=== PATIENT | male | born 1970 | race Caucasian/White ===

== ENCOUNTER 2017-07-24 08:30 | Day surgery (SDC) | payer OTHER ==
--- NOTE | 2017-07-24 07:32 | PCM.PREANE ---
Preanesthetic Assessment - Anesthesia/Transfusion/Family Hx Anesthesia History: Prior Anesthesia Without Reaction Family History of Anesthesia Reaction: No Transfusion History: No Prior Transfusion(s) Intubation History: Unknown - Review of Systems General: No Symptoms Pulmonary: No Symptoms (Exercise induced asthma (last used albuterol inhaler) Cardiovascular: No Symptoms Gastrointestinal: No Symptoms (GERD) Neurological: No Symptoms (History of arthritis), Tingling (Big toe left foot) Other: Reports: None, Sinus Problem (Allergic rhinits) - Physical Assessment NPO Status Date: 07/23/17 NPO Status Time: 22:45 Pulse: 81 O2 Sat by Pulse Oximetry: 96 Respiratory Rate: 16 Blood Pressure: 126/90 Temperature: 36.4 C Height: 1.88 m Weight: 106 kg ASA Class: 2 Mental Status: Alert & Oriented x3 Airway Class: Mallampati = 2 Dentition: Reports: Normal Dentition, Caries Thyro-Mental Finger Breadths: 3 Mouth Opening Finger Breadths: 3 ROM/Head Extension: Full Lungs: Clear to Auscultation, Normal Respiratory Effort Cardiovascular: Regular Rate, Regular Rhythm, No Murmurs - Lab Values: Laboratory Last Values MRSA (PCR) Negative 07/05/17 09:45 All lab values reviewed and noted and within acceptable ranges to proceed with scheduled procedure. Platelets= 320,000. - Imaging/EKG Impressions: Sinus rhythm rate= 87. - Allergies Allergies/Adverse Reactions: Allergies Allergy/AdvReac Type Severity Reaction Status Date / Time No Known Allergies Allergy Verified 07/21/17 10:23 - Anesthesia Plan Pre-Op Medication Ordered: None - Acknowledgements Anesthesia Type Planned: Spinal Pt an Appropriate Candidate for the Planned Anesthesia: Yes Alternatives and Risks of Anesthesia Discussed w Pt/Guardian: Yes Pt/Guardian Understands and Agrees with Anesthesia Plan: Yes PreAnesthesia Questionnaire HEENT History: Reports: Allergic Rhinitis Respiratory History: Reports: Asthma Musculoskeletal History: Reports: Arthritis, Osteoarthritis - Past Surgical History Musculoskeletal Surgical History: Reports: Arthroscopic Knee, Other (See Below) Other Musculoskeletal Surgeries/Procedures:: bilateral heel surgery, L ACL reconstruction, bilateral knee scopes Dermatological Surgical History: Reports: Other (See Below) - SUBSTANCE USE Smoking Status *Q: Never Smoker Recreational Drug Use History: No - HOME MEDS Home Medications: Home Meds Acetaminophen [Tylenol Extra Strength] 1,000 mg PO ASDIRECTED PRN 07/21/17 [ History] Albuterol [IJD: Albuterol HFA] 1 puff INH ASDIRECTED PRN 07/21/17 [History] Cholecalciferol (Vitamin D3) [Vitamin D] 1 tab PO DAILY 07/21/17 [History] - CURRENT (IN HOUSE) MEDS Current Meds: Current Medications Aspirin (Ecotrin) 325 mg PO BID [facility] Bisacodyl (Dulcolax) 5 mg PO DAILY PRN PRN Reason: Constipation Morphine Sulfate 8 mg/Epinephrine HCl 0.3 mg/Cefuroxime Sodium 750 mg/Ketorolac Tromethamine 30 mg/Sodium Chloride 27.9 ml 0 mg .XX ONETIME ONE Stop: 07/24/17 06:51 Cyclobenzaprine HCl (Flexeril) 10 mg PO TID PRN PRN Reason: Spasms Diphenhydramine HCl (Benadryl) 25 mg IVPUSH Q4H PRN PRN Reason: Nausea Docusate Sodium (Colace) 100 mg PO BID MANNY Famotidine (Pepcid) 20 mg PO Q12H [facility] Lactated Ringer's (Ringers, Lactated) 1,000 mls @ 125 mls/hr IV ASDIRECTED MANNY Stop: 07/24/17 18:00 Cefazolin Sodium/Dextrose 2 gm (/ Premix) 50 mls @ 100 mls/hr IV Q8H [facility] Stop: 07/24/17 23:29 Ketorolac Tromethamine (Toradol) 15 mg IVPUSH Q6H PRN PRN Reason: Pain Lidocaine/Sodium Bicarbonate (Buffered Lidocaine 1% In Ns 8.4%) 0.25 ml IV ONETIME PRN PRN Reason: Prior to IV Start Stop: 07/24/17 18:00 Magnesium Hydroxide (Milk Of Magnesia) 30 ml PO BID PRN PRN Reason: Constipation Morphine Sulfate (Morphine) 2 mg IVPUSH Q2H PRN PRN Reason: Breakthrough Pain Naloxone HCl (Narcan) 0.1 mg IVPUSH Q5M PRN PRN Reason: Oversedation Oxycodone/Acetaminophen (Percocet 325-5 Mg) 1 - 2 tab PO Q4H PRN PRN Reason: Pain Senna (Senna) 8.6 mg PO BID PRN PRN Reason: Constipation Sodium Chloride (Saline Flush) 10 ml FLUSH ASDIRECTED PRN PRN Reason: Keep Vein Open Stop: 07/24/17 18:00
[~2017-07-24 08:30] MED LIST: Bisacodyl 5 MG Tab PO PRN; Ketamine 500 mg/10 ML MDV ONE; Ketorolac 30 MG/ML SDV ONE; Lactated Ringers 1,000 ML IV SCH; Lactated Ringers 1,000 ML ONE; Lidocaine 1%/Sod Bicarbonate in NS 8.4% 1 ML Syringe IV PRN; Magnesium Hydroxide 400 MG/5 ML Susp 30 ML Cup PO PRN; Midazolam 1 MG/ML 2 ML SDV ONE; Morphine 4 MG/ML Syringe IVPUSH PRN; Morphine PF 1 MG/ML Amp ONE; Naloxone 0.4 MG/ML SDV IVPUSH PRN; Ondansetron 4 MG/2 ML SDV ONE; Phenylephrine/Normal Saline 100 MCG/ML 10 ML Syringe ONE; Propofol 200 MG/20 ML SDV ONE; Sennosides 8.6 MG Tab PO PRN; Sodium Chloride 0.9% 10 ML Syringe FLUSH PRN; diphenhydrAMINE 50 MG/ML SDV IVPUSH PRN; fentaNYL 100 MCG/2 ML SDV ONE
[2017-07-24] MEDS ORDERED: ceFAZolin 1 GM Vial ONE (08:50)
[2017-07-24] MEDS ORDERED: fentaNYL 100 MCG/2 ML SDV IVPUSH PRN (10:14)
[2017-07-24] MEDS ORDERED: ePHEDrine 50 MG/ML SDV IVPUSH PRN (10:14)
[2017-07-24] MEDS ORDERED: Albuterol 0.083% 2.5 MG/3 ML Neb Soln NEB PRN (10:14)
[2017-07-24] MEDS ORDERED: Midazolam 1 MG/ML 2 ML SDV IVPUSH PRN (10:14)
[2017-07-24] MEDS ORDERED: Ondansetron 4 MG/2 ML SDV IVPUSH PRN (10:14)
[2017-07-24] MEDS ORDERED: diphenhydrAMINE 50 MG/ML SDV IVPUSH PRN (10:14)
[2017-07-24] MEDS ORDERED: HYDROmorphone 0.5 MG/0.5 ML Syringe IVPUSH PRN (10:14)
[2017-07-24] MEDS ORDERED: Phenylephrine 1 MG in Sodium Chloride 0.9% 10 ML IV SCH (10:15)
[2017-07-24] MEDS ORDERED: Lactated Ringers 1,000 ML ONE (10:18)
[2017-07-24] MEDS: Bupivacaine 0.25% 10 ML SDV ONE ×2 (10:40→11:25)
[2017-07-24] MEDS: Iodine/Sodium Iodide 2% Tincture 30 ML Bottle ONE ×2 (10:40→11:20)
[2017-07-24] MEDS: ceFAZolin 1 GM Vial ONE ×2 (10:40→11:23)
[2017-07-24] MEDS: Morphine 8 MG, EPINEPHrine 0.3 MG, Cefuroxime 750 MG, Ketorolac 30 MG, Sodium Chloride ... ONE ×10 (10:41→11:28)
[2017-07-24] MEDS: Vancomycin 1 GM SDV ONE ×2 (10:42→11:30)
[2017-07-24] MEDS ORDERED: Propofol 200 MG/20 ML SDV ONE (11:00)
[2017-07-24] MEDS ORDERED: ePHEDrine/Normal Saline 25 MG/5 ML Syringe ONE (11:38)
[2017-07-24] MEDS ORDERED: Midazolam 1 MG/ML 2 ML SDV ONE (11:50)
[2017-07-24] MEDS ORDERED: Ropivacaine 0.5% 5 MG/ML 30 ML SDV ONE (12:29)
--- NOTE | 2017-07-24 12:29 | PCM.POSTAN ---
POST ANESTHESIA ASSESSMENT - MENTAL STATUS Mental Status: Alert - VITAL SIGNS Pulse Rate: 79 SaO2: 96 Resp Rate: 14 Blood Pressure: 129/88 Temperature: 36.2 C - RESPIRATORY Respiratory Status: Respiratory Rate WNL, Airway Patent, O2 Saturation Stable, Supplemental Oxygen - CARDIOVASCULAR CV Status: Pulse Rate WNL, Blood Pressure Stable - GASTROINTESTINAL GI Status: No Symptoms - POST OP HYDRATION Hydration Status: Adequate & Stable
[2017-07-24] MEDS ORDERED: Albuterol 6.7 GM Inhaler *** PATIENT'S OWN INH PRN (12:45)
--- NOTE | 2017-07-24 13:16 | PCM.SN ---
- Free Text/Narrative Note: Left selective femoral nerve block at the adductor canal for post-procedure pain control Start: 1245 Time out: 1247 End: 1253 Chart reviewed. Consent signed. Questions answered. Appropriate monitors applied (PACU). Time out performed. Left mid-shaft femur evaluated with ultrasound. Scanning medially femur, I was able to identify the femoral artery in the adductor canal. The saphenous nerve was lateral to the artery. The skin was prepped lateral to the ultrasound probe with chlorahexadine. Skin local not utilized due to the effectiveness of the existing spinal blockade. The 21ga 4 insulated block needle was inserted under direct ultrasound guidance into the adductor canal. 20mL of 0.5% ropivacaine with 1:200,000 epinephrine was injected cirmcumferentially about the nerve with intermittent negative aspiration. Patient tolerated the procedure well. See pictures on progress note and vital signs on nurses notes. Block completed post-operatively in PACU. Vinh Jerome CRNA
--- NOTE | 2017-07-24 13:44 | CR ---
Left knee: AP and lateral views left knee were obtained. Comparison: No previous study. Knee prosthesis is seen. Soft tissue air is noted. Underlying bony structures are intact. Impression: 1. Satisfactory radiographic appearance of recently placed left knee prosthesis. Diagnostic code #2
[2017-07-24] MEDS ORDERED: Scopolamine 1 MG Transdermal Patch TOP ONE (15:51)
--- NOTE | 2017-07-24 16:56 | PCM.CONS ---
H&P History of Present Illness - General Date of Service: 07/24/17 Admit Problem/Dx: Admission Diagnosis/Problem Admission Diagnosis/Problem Osteoarthritis of knee Source of Information: Patient, Old Records, Provider, RN, RN Notes Reviewed, Other (Surgical Report ) - History of Present Illness Initial Comments - Free Text/Narative: Cheikh Pablo is a 47 yo male patient of Dr. Clemente who is post-operative day 0 of left TKA and hardware removal. Hospital medicine was consulted for post- operative medical care. At this time he is lying in bed. Pain is controlled. He denies any chest pain, shortness of breath, or palpitations. He has had some post-operative nausea and vomiting. Zofran and a scopolamine patch are ordered. He carries a history of: Asthma, also arthritis, arthritis, ACL reconstruction. He was never a smoker. He is a full code. His primary care provider is Julian Gupta PA-C here at [facility]. Left Knee Pain Score (Numeric/FACES): 1 - Related Data Allergies/Adverse Reactions: Allergies Allergy/AdvReac Type Severity Reaction Status Date / Time No Known Allergies Allergy Verified 07/24/17 14:53 Home Medications: Home Meds Acetaminophen [Tylenol Extra Strength] 1,000 mg PO ASDIRECTED PRN 07/21/17 [ History] Albuterol [IJD: Albuterol HFA] 1 puff INH ASDIRECTED PRN 07/21/17 [History] Cholecalciferol (Vitamin D3) [Vitamin D] 1 tab PO DAILY 07/21/17 [History] Past Medical History HEENT History: Reports: Allergic Rhinitis Respiratory History: Reports: Asthma Musculoskeletal History: Reports: Arthritis, Osteoarthritis - Past Surgical History Musculoskeletal Surgical History: Reports: Arthroscopic Knee, Other (See Below) Other Musculoskeletal Surgeries/Procedures:: bilateral heel surgery, L ACL reconstruction, bilateral knee scopes Dermatological Surgical History: Reports: Other (See Below) Social & Family History - Tobacco Use Smoking Status *Q: Never Smoker - Recreational Drug Use Recreational Drug Use: No Drug Use in Last 12 Months: No H&P Review of Systems - Review of Systems: Review Of Systems: See Below General: Reports: No Symptoms. Denies: Fever, Chills, Malaise, Weakness, Fatigue HEENT: Reports: No Symptoms. Denies: Ear Pain, Eye Pain, Headaches, Hearing Changes, Vertigo, Visual Changes Pulmonary: Reports: No Symptoms. Denies: Shortness of Breath, Wheezing, Pleuritic Chest Pain, Cough, Sputum Cardiovascular: Reports: No Symptoms. Denies: Chest Pain, Palpitations, Dyspnea on Exertion, Edema, Lightheadedness Gastrointestinal: Reports: Nausea, Vomiting. Denies: Abdominal Pain, Constipation, Diarrhea, Hematemesis, Hematochezia Genitourinary: Reports: No Symptoms, Other ([place] in place ). Denies: Dysuria, Frequency, Burning, Pain, Urgency Musculoskeletal: Reports: Joint Pain (left knee ) Skin: Reports: No Symptoms Psychiatric: Reports: No Symptoms Neurological: Reports: No Symptoms Hematologic/Lymphatic: Reports: No Symptoms Immunologic: Reports: No Symptoms Exam - Exam Exam: See Below - Vital Signs Vital Signs: Last Vital Signs Temp 96.8 F 07/24/17 13:15 Pulse 69 07/24/17 13:15 Resp 11 L 07/24/17 13:15 BP 128/82 07/24/17 13:15 Pulse Ox 95 07/24/17 14:48 Weight: 233 lb 11.04 oz - Exam Quality Assessment: Urinary Catheter, DVT Prophylaxis General: Alert, Oriented, Cooperative. No: Mild Distress HEENT: PERRLA, Hearing Intact, Mucosa Moist & [place], Nares Patent, Normal Nasal Septum, Posterior Pharynx Clear, Conjunctiva Clear, EOMI, EACs Clear, TMs Clear Neck: Supple, Trachea Midline Lungs: Clear to Auscultation, Normal Respiratory Effort Cardiovascular: Regular Rate, Regular Rhythm GI/Abdominal Exam: Normal Bowel Sounds, Soft, Non-Tender, No Organomegaly, No Distention, No Abnormal Bruit, No Mass, Pelvis Stable (Male) Exam: Deferred Rectal (Males) Exam: Deferred Extremities: No Pedal Edema, Normal Capillary Refill, Other (Hood bandage on left knee. Bandage is dry and intact. Cooling pack in place.) Peripheral Pulses: 2+: Radial (L), Radial (R), Posterior Tibial (L), Posterior Tibial (R), Dorsalis Pedis (L), Dorsalis Pedis (R) Skin: Warm, Dry, Intact Neurological: Cranial Nerves Intact (Grossly) Neuro Extensive - Mental Status: Alert, Oriented x3, Normal Mood/Affect, Normal Cognition, Memory Intact Neuro Extensive - Motor, Sensory, Reflexes: CN II-XII Intact (Grossly). No: Normal Gait Psychiatric: Alert, Normal Affect, Normal Mood Consult PN Assessment/Plan POD#: 0 Procedures: Procedures ASSAY OF PREALBUMIN (07/12/17) ASSAY OF SERUM ALBUMIN (07/12/17) COMPLETE CBC W/AUTO DIFF WBC (07/12/17) METABOLIC PANEL TOTAL CA (07/12/17) PROTHROMBIN TIME (07/12/17) ROUTINE VENIPUNCTURE (07/12/17) THROMBOPLASTIN TIME PARTIAL (07/12/17) X-RAY EXAM CHEST 2 VIEWS (07/20/17) (1) S/P total knee arthroplasty SNOMED Code(s): 8809853588610, 2012073519415 Code(s): Z96.659 - PRESENCE OF UNSPECIFIED ARTIFICIAL KNEE JOINT Priority: High Current Visit: Yes Qualifiers: Laterality: left Qualified Code(s): Z96.652 - Presence of left artificial knee joint (2) S/P hardware removal SNOMED Code(s): 827825418 Code(s): Z98.890 - OTHER SPECIFIED POSTPROCEDURAL STATES Priority: High Current Visit: Yes (3) Osteoarthritis SNOMED Code(s): 615382579 Code(s): M19.90 - UNSPECIFIED OSTEOARTHRITIS, UNSPECIFIED SITE Priority: High Current Visit: Yes Qualifiers: Osteoarthritis location: knee Osteoarthritis type: primary Laterality: bilateral Qualified Code(s): M17.0 - Bilateral primary osteoarthritis of knee (4) Asthma SNOMED Code(s): 164491258 Code(s): J45.909 - UNSPECIFIED ASTHMA, UNCOMPLICATED Priority: Low Current Visit: Yes Qualifiers: Asthma severity: unspecified severity Asthma persistence: unspecified Asthma complication type: unspecified Qualified Code(s): J45.909 - Unspecified asthma, uncomplicated Problem List Initiated/Reviewed/Updated: Yes Plan: I/P: Acute: S/P left total knee arthroplasty - post-operative day -year-old -DVT prophylaxis and pain management per primary care team -PT/OT -IS/RT -Monitor oxygen saturation -Titrate oxygen as needed -Vital signs stable -Monitor labs -Pre-operative Hgb was 16.6 -Pre-operative BUN 23, Creatinine 1.2, eGFR >60 Osteoarthritis of bilateral knees -Pain management per primary care team S/P left knee hardware removal - Prior ACL fixation Post-operative nausea and vomiting -Zofran as ordered -Scopolamine patch ordered Chronic: Asthma Plan: CM for discharge planning GI prophylaxis Home medications as indicated Other orders as listed above Routine AM labs He is a full code. His PCP is Julian Gupta PA-C, here at [facility] Thank you for allowing us to participate in the care of this patient!! Total time spent with patient - 45 minutes Requesting Provider: Dr. Clemente Date Consult Requested: 07/24/17 Reason for Consult: Post-operative medical care Patient History Reviewed: Yes Admission H&P Reviewed: Yes Notified Requestor: Yes Time Spent (in minutes): 45
[2017-07-24] MEDS: ceFAZolin 2 GM in Premix Bag 1 BAG IV SCH (17:14)
[2017-07-24] MEDS: Ondansetron 4 MG/2 ML SDV IVPUSH SCH (17:30)
[2017-07-24] MEDS: Docusate Sodium 100 MG Cap PO SCH (21:18)
[2017-07-24] MEDS: Famotidine 20 MG Tab PO SCH (21:19)
[2017-07-24] MEDS: Ketorolac 15 MG/ML SDV IVPUSH PRN (21:21)
[2017-07-25] MEDS: Acetaminophen/oxyCODONE 325-5 MG Tab PO PRN ×3 (00:20→11:01)
[2017-07-25] MEDS: Ondansetron 4 MG/2 ML SDV IVPUSH SCH ×2 (00:20→06:14)
[2017-07-25] MEDS: ceFAZolin 2 GM in Premix Bag 1 BAG IV SCH ×2 (00:26→09:23)
[2017-07-25] MEDS: Cyclobenzaprine 10 MG Tab PO PRN ×2 (03:07→11:42)
[2017-07-25] MEDS: Ketorolac 15 MG/ML SDV IVPUSH PRN (04:54)
--- NOTE | 2017-07-25 08:34 | PCM48HPAN ---
Post Anesthesia Note - EVALUATION WITHIN 48HRS OF ANESTHETIC Vital Signs in Normal Range: Yes Patient Participated in Evaluation: Yes Respiratory Function Stable: Yes Airway Patent: Yes Cardiovascular Function Stable: Yes Hydration Status Stable: Yes Pain Control Satisfactory: Yes (mild pain 2-3) Nausea and Vomiting Control Satisfactory: Yes Mental Status Recovered: Yes
--- NOTE | 2017-07-25 08:39 | PCM.SURGPN ---
- General Info Date of Service: 07/25/17 POD#: 1 Functional Status: Reports: Pain Controlled, Tolerating Diet, Ambulating, Urinating, Incentive Spirometry - Patient Data Vitals - Most Recent: Last Vital Signs Temp 96.9 F 07/24/17 22:00 Pulse 66 07/24/17 22:00 Resp 14 07/25/17 07:00 BP 130/85 07/24/17 22:00 Pulse Ox 95 07/25/17 06:00 Weight - Most Recent: 233 lb 11.04 oz Lab Results Last 24 Hrs: Laboratory Results - last 24 hr 07/25/17 Range/Units 07:31 WBC 14.99 H (4.23-9.07) K/mm3 RBC 4.25 L (4.63-6.08) M/mm3 Hgb 12.7 L (13.7-17.5) gm/L Hct 37.9 L (40.1-51.0) % MCV 89.2 (79.0-92.2) fl MCH 29.9 (25.7-32.2) pg MCHC 33.5 (32.2-35.5) g/dl RDW Std Deviation 41.2 (35.1-43.9) fL Plt Count 279 (163-337) K/mm3 MPV 10.3 (9.4-12.3) fl Med Orders - Current: Current Medications Albuterol (Proventil Hfa) 0 gm INH ASDIRECTED PRN PRN Reason: Shortness of Breath Aspirin (Ecotrin) 325 mg PO BID [facility] Bisacodyl (Dulcolax) 5 mg PO DAILY PRN PRN Reason: Constipation Cholecalciferol (Vitamin D3) 5,000 units PO DAILY [facility] Cyclobenzaprine HCl (Flexeril) 10 mg PO TID PRN PRN Reason: Spasms Last Admin: 07/25/17 03:07 Dose: 10 mg Docusate Sodium (Colace) 100 mg PO BID [facility] Last Admin: 07/24/17 21:18 Dose: Not Given Famotidine (Pepcid) 20 mg PO Q12H [facility] Last Admin: 07/24/17 21:19 Dose: Not Given Cefazolin Sodium/Dextrose 2 gm (/ Premix) 50 mls @ 100 mls/hr IV Q8H [facility] Stop: 07/25/17 09:29 Last Admin: 07/25/17 00:26 Dose: 100 mls/hr Ketorolac Tromethamine (Toradol) 15 mg IVPUSH Q6H PRN PRN Reason: Pain Last Admin: 07/25/17 04:54 Dose: 15 mg Magnesium Hydroxide (Milk Of Magnesia) 30 ml PO BID PRN PRN Reason: Constipation Morphine Sulfate (Morphine) 2 mg IVPUSH Q2H PRN PRN Reason: Breakthrough Pain Naloxone HCl (Narcan) 0.1 mg IVPUSH Q5M PRN PRN Reason: Oversedation Ondansetron HCl (Zofran) 4 mg IVPUSH Q6HR [facility] Last Admin: 07/25/17 06:14 Dose: Not Given Oxycodone/Acetaminophen (Percocet 325-5 Mg) 1 - 2 tab PO Q4H PRN PRN Reason: Pain Last Admin: 07/25/17 06:11 Dose: 2 tab Senna (Senna) 8.6 mg PO BID PRN PRN Reason: Constipation Discontinued Medications Albuterol (Proventil Neb Soln) 2.5 mg NEB ONETIME PRN PRN Reason: improve pulmonary toilet Bupivacaine HCl (Sensorcaine-Mpf 0.25%) Confirm Administered Dose 30 ml .ROUTE .STK-MED ONE Stop: 07/24/17 08:51 Last Admin: 07/24/17 11:25 Dose: 30 ml Cefazolin Sodium (Ancef) Confirm Administered Dose 2 gm .ROUTE .STK-MED ONE Stop: 07/24/17 08:05 Last Admin: 07/24/17 11:23 Dose: 2 gm Cefazolin Sodium (Ancef) Confirm Administered Dose 2 gm .ROUTE .STK-MED ONE Stop: 07/24/17 08:51 Morphine Sulfate 8 mg/Epinephrine HCl 0.3 mg/Cefuroxime Sodium 750 mg/Ketorolac Tromethamine 30 mg/Sodium Chloride 27.9 ml 0 mg .XX ONETIME ONE Stop: 07/24/17 06:51 Last Admin: 07/24/17 11:28 Dose: 788.3 mg Diphenhydramine HCl (Benadryl) 25 mg IVPUSH Q4H PRN PRN Reason: Nausea Diphenhydramine HCl (Benadryl) 25 mg IVPUSH Q6H PRN PRN Reason: pruritis Ephedrine Sulfate (Ephedrine Sulfate) 5 mg IVPUSH ASDIRECTED PRN PRN Reason: Hypotension Stop: 07/24/17 16:00 Ephedrine Sulfate (Ephedrine In Ns) Confirm Administered Dose 25 mg .ROUTE .STK- MED ONE Stop: 07/24/17 11:39 Fentanyl (Sublimaze) Confirm Administered Dose 100 mcg .ROUTE .STK-MED ONE Stop: 07/24/17 08:06 Fentanyl (Sublimaze) 50 mcg IVPUSH Q5M PRN PRN Reason: Pain Stop: 07/24/17 10:15 Hydromorphone HCl (Dilaudid) 0.5 mg IVPUSH Q15M PRN PRN Reason: severe pain Stop: 07/24/17 10:15 Lactated Ringer's (Ringers, Lactated) 1,000 mls @ 125 mls/hr IV ASDIRECTED MANNY Stop: 07/24/17 18:00 Last Admin: 07/24/17 08:55 Dose: 125 mls/hr Lidocaine HCl (Xylocaine-Mpf 1%) Confirm Administered Dose 10 mls @ as directed .ROUTE .STK-MED ONE Stop: 07/24/17 08:05 Lactated Ringer's (Ringers, Lactated) Confirm Administered Dose 1,000 mls @ as directed .ROUTE .STK-MED ONE Stop: 07/24/17 08:05 Lactated Ringer's (Ringers, Lactated) Confirm Administered Dose 1,000 mls @ as directed .ROUTE .STK-MED ONE Stop: 07/24/17 10:19 Phenylephrine HCl 1 mg/ Sodium (Chloride) 10.1 mls @ 1 mls/sec IV TITRATE [facility] PRN Reason: Protocol Stop: 07/24/17 16:00 Iodine (Iodine 2% Mild Tincture) Confirm Administered Dose 30 ml .ROUTE .STK- MED ONE Stop: 07/24/17 08:51 Last Admin: 07/24/17 11:20 Dose: 18 ml Ketamine HCl (Ketalar) Confirm Administered Dose 500 mg .ROUTE .STK-MED ONE Stop: 07/24/17 08:08 Ketorolac Tromethamine (Toradol) Confirm Administered Dose 30 mg .ROUTE .STK- MED ONE Stop: 07/24/17 08:05 Lidocaine/Sodium Bicarbonate (Buffered Lidocaine 1% In Ns 8.4%) 0.25 ml IV ONETIME PRN PRN Reason: Prior to IV Start Stop: 07/24/17 18:00 Last Admin: 07/24/17 08:55 Dose: 0.25 ml Midazolam HCl (Versed 1 Mg/Ml) Confirm Administered Dose 2 mg .ROUTE .STK-MED ONE Stop: 07/24/17 08:06 Midazolam HCl (Versed 1 Mg/Ml) 2 mg IVPUSH ONETIME PRN PRN Reason: Sedation Stop: 07/24/17 18:00 Midazolam HCl (Versed 1 Mg/Ml) Confirm Administered Dose 2 mg .ROUTE .STK-MED ONE Stop: 07/24/17 11:51 Morphine Sulfate (Duramorph Pf) Confirm Administered Dose 1 mg .ROUTE .STK-MED ONE Stop: 07/24/17 07:52 Ondansetron HCl (Zofran) Confirm Administered Dose 4 mg .ROUTE .STK-MED ONE Stop: 07/24/17 08:05 Ondansetron HCl (Zofran) 4 mg IVPUSH ONETIME PRN PRN Reason: Nausea/Vomiting Stop: 07/24/17 16:00 Last Admin: 07/24/17 14:12 Dose: 4 mg Phenylephrine HCl (Phenylephrine In Ns 100 Mcg/Ml) Confirm Administered Dose 1 mg .ROUTE .STK-MED ONE Stop: 07/24/17 08:05 Propofol (Diprivan 20 Ml) Confirm Administered Dose 400 mg .ROUTE .STK-MED ONE Stop: 07/24/17 08:06 Propofol (Diprivan 20 Ml) Confirm Administered Dose 200 mg .ROUTE .STK-MED ONE Stop: 07/24/17 11:01 Ropivacaine (Naropin 0.5%) Confirm Administered Dose 30 ml .ROUTE .STK-MED ONE Stop: 07/24/17 12:30 Scopolamine (Scopolamine) 1 each TOP ONETIME ONE Stop: 07/24/17 15:52 Last Admin: 07/24/17 16:03 Dose: 1 each Sodium Chloride (Saline Flush) 10 ml FLUSH ASDIRECTED PRN PRN Reason: Keep Vein Open Stop: 07/24/17 18:00 Tranexamic Acid (Cyklokapron) Confirm Administered Dose 1,000 mg .ROUTE .STK- MED ONE Stop: 07/24/17 08:51 Last Admin: 07/24/17 11:35 Dose: 1,000 mg Vancomycin HCl (Vancomycin) Confirm Administered Dose 1 gm .ROUTE .STK-MED ONE Stop: 07/24/17 08:51 Last Admin: 07/24/17 11:30 Dose: 1 gm - Exam Wound/Incisions: Dressing Dry and Intact General: Alert, Cooperative, No Acute Distress Lungs: Normal Respiratory Effort Extremities: Other (NVS intact. Johnnie's negative.) - Problem List Review Problem List Initiated/Reviewed/Updated: Yes - My Orders Last 24 Hours: Active Orders 24 hr Category Date Time Status Communication Order [RC] ASDIRECTED Care 07/24/17 10:13 Active Notify Provider [RC] ASDIRECTED Care 07/24/17 10:13 Active Pulse Oximetry [RC] ASDIRECTED Care 07/24/17 10:13 Active RT Aerosol Therapy [RC] .PRN Care 07/24/17 10:15 Active Vital Signs [RC] Q1HR Care 07/24/17 10:12 Active Regular Diet [DIET] Diet 07/24/17 Lunch Active COMPREHENSIVE METABOLIC PN,CMP [CHEM] AM Lab 07/25/17 07:31 Received Albuterol [Proventil HFA] Med 07/24/17 12:45 Active 0 gm INH ASDIRECTED PRN Aspirin [Ecotrin] Med 07/25/17 09:00 Active 325 mg PO BID Cholecalciferol (Vitamin D3) [Vitamin D3] Med 07/25/17 09:00 Active 5,000 units PO DAILY Docusate Sodium [Colace] Med 07/24/17 21:00 Active 100 mg PO BID Famotidine [Pepcid] Med 07/24/17 21:00 Active 20 mg PO Q12H Ondansetron [Zofran] Med 07/24/17 18:00 Active 4 mg IVPUSH Q6HR ceFAZolin [Ancef] 2 gm Med 07/24/17 17:00 Active Premix Bag 1 bag IV Q8H Pulse Oximetry Continuous Monitoring [OM.PC] Routine Oth 07/24/17 10:13 Active Medication Orders Albuterol (Proventil Hfa) 0 gm INH ASDIRECTED PRN PRN Reason: Shortness of Breath Aspirin (Ecotrin) 325 mg PO BID [facility] Bisacodyl (Dulcolax) 5 mg PO DAILY PRN PRN Reason: Constipation Cholecalciferol (Vitamin D3) 5,000 units PO DAILY [facility] Cyclobenzaprine HCl (Flexeril) 10 mg PO TID PRN PRN Reason: Spasms Last Admin: 07/25/17 03:07 Dose: 10 mg Docusate Sodium (Colace) 100 mg PO BID [facility] Last Admin: 07/24/17 21:18 Dose: Famotidine (Pepcid) 20 mg PO Q12H [facility] Last Admin: 07/24/17 21:19 Dose: Cefazolin Sodium/Dextrose 2 gm (/ Premix) 50 mls @ 100 mls/hr IV Q8H [facility] Stop: 07/25/17 09:29 Last Admin: 07/25/17 00:26 Dose: 100 mls/hr Infusion: 07/24/17 17:44 Dose: 100 mls/hr Admin: 07/24/17 17:14 Dose: 100 mls/hr Ketorolac Tromethamine (Toradol) 15 mg IVPUSH Q6H PRN PRN Reason: Pain Last Admin: 07/25/17 04:54 Dose: 15 mg Admin: 07/24/17 21:21 Dose: 15 mg Magnesium Hydroxide (Milk Of Magnesia) 30 ml PO BID PRN PRN Reason: Constipation Morphine Sulfate (Morphine) 2 mg IVPUSH Q2H PRN PRN Reason: Breakthrough Pain Naloxone HCl (Narcan) 0.1 mg IVPUSH Q5M PRN PRN Reason: Oversedation Ondansetron HCl (Zofran) 4 mg IVPUSH Q6HR [facility] Last Admin: 07/25/17 06:14 Dose: Not Given Admin: 07/25/17 00:20 Dose: 4 mg Admin: 07/24/17 17:30 Dose: 4 mg Oxycodone/Acetaminophen (Percocet 325-5 Mg) 1 - 2 tab PO Q4H PRN PRN Reason: Pain Last Admin: 07/25/17 06:11 Dose: 2 tab Admin: 07/25/17 00:20 Dose: 2 tab Senna (Senna) 8.6 mg PO BID PRN PRN Reason: Constipation - Assessment Assessment (Free Text/Narrative):: POD#1 - left TKA - Plan Plan (Free Text/Narrative):: 1. Discharge to home today. 2. Percocet and Flexeril for pain management. 3. The pt will f/u at Clinic next week. 4. 325mg ASA BID, TEDs use, frequent mobility. The pt was evaluated by Dr. Clemente today.
[2017-07-25] MEDS ORDERED: Aspirin 325 MG Tab.EC PO SCH (09:00)
[2017-07-25] MEDS ORDERED: Cholecalciferol (Vitamin D3) 1,000 Unit Tab PO SCH (09:00)
[2017-07-25] MEDS ORDERED: diphenhydrAMINE 25 MG Cap PO PRN (09:16)
[2017-07-25] MEDS: Famotidine 20 MG Tab PO SCH (09:22)
[2017-07-25] MEDS: Docusate Sodium 100 MG Cap PO SCH (09:22)
--- NOTE | 2017-07-25 10:30 | PCM.CONSN ---
- General Info Date of Service: 07/25/17 Admission Dx/Problem (Free Text): Admission Diagnosis/Problem Admission Diagnosis/Problem Osteoarthritis of knee Pain under good control. Nausea resolved from yesterday. VSS. labs stable. plans for DC home today Functional Status: Reports: Pain Controlled, Tolerating Diet, Ambulating, Urinating, Incentive Spirometry. Denies: New Symptoms - Review of Systems General: Reports: No Symptoms HEENT: Reports: No Symptoms Pulmonary: Reports: No Symptoms Cardiovascular: Reports: No Symptoms Gastrointestinal: Reports: No Symptoms Genitourinary: Reports: No Symptoms Musculoskeletal: Reports: Leg Pain Skin: Reports: No Symptoms Neurological: Reports: No Symptoms Psychiatric: Reports: No Symptoms - Patient Data Vitals - Most Recent: Last Vital Signs Temp 96.9 F 07/24/17 22:00 Pulse 66 07/24/17 22:00 Resp 14 07/25/17 07:00 BP 130/85 07/24/17 22:00 Pulse Ox 95 07/25/17 06:00 Weight - Most Recent: 233 lb 11.04 oz Lab Results Last 24 Hours: Laboratory Results - last 24 hr 07/25/17 07/25/17 Range/Units 07:31 07:31 WBC 14.99 H (4.23-9.07) K/mm3 RBC 4.25 L (4.63-6.08) M/mm3 Hgb 12.7 L (13.7-17.5) gm/L Hct 37.9 L (40.1-51.0) % MCV 89.2 (79.0-92.2) fl MCH 29.9 (25.7-32.2) pg MCHC 33.5 (32.2-35.5) g/dl RDW Std Deviation 41.2 (35.1-43.9) fL Plt Count 279 (163-337) K/mm3 MPV 10.3 (9.4-12.3) fl Sodium 132 L (136-145) mEq/L Potassium 3.9 (3.5-5.1) mEq/L Chloride 97 L (98-107) mEq/L Carbon Dioxide 27 (21-32) mEq/L Anion Gap 11.9 (5-15) BUN 18 (7-18) mg/dL Creatinine 1.1 (0.7-1.3) mg/dL Est Cr Clr Drug Dosing 94.45 mL/min Estimated GFR (MDRD) > 60 (>60) mL/min BUN/Creatinine Ratio 16.4 (14-18) Glucose 111 H (74-106) mg/dL Calcium 8.7 (8.5-10.1) mg/dL Total Bilirubin 0.7 (0.2-1.0) mg/dL AST 28 (15-37) U/L ALT 55 (16-63) U/L Alkaline Phosphatase 40 L (46-116) U/L Total Protein 6.7 (6.4-8.2) g/dl Albumin 3.4 (3.4-5.0) g/dl Globulin 3.3 gm/dL Albumin/Globulin Ratio 1.0 (1-2) Med Orders - Current: Current Medications Albuterol (Proventil Hfa) 0 gm INH ASDIRECTED PRN PRN Reason: Shortness of Breath Aspirin (Ecotrin) 325 mg PO BID COUNT INCLUDES THE [facility] Last Admin: 07/25/17 09:22 Dose: 325 mg Bisacodyl (Dulcolax) 5 mg PO DAILY PRN PRN Reason: Constipation Cholecalciferol (Vitamin D3) 5,000 units PO DAILY COUNT INCLUDES THE [facility] Last Admin: 07/25/17 09:23 Dose: 5,000 units Cyclobenzaprine HCl (Flexeril) 10 mg PO TID PRN PRN Reason: Spasms Last Admin: 07/25/17 03:07 Dose: 10 mg Diphenhydramine HCl (Benadryl) 25 mg PO Q4H PRN PRN Reason: Itching Last Admin: 07/25/17 09:22 Dose: 25 mg Docusate Sodium (Colace) 100 mg PO BID COUNT INCLUDES THE [facility] Last Admin: 07/25/17 09:22 Dose: 100 mg Famotidine (Pepcid) 20 mg PO Q12H COUNT INCLUDES THE [facility] Last Admin: 07/25/17 09:22 Dose: 20 mg Ketorolac Tromethamine (Toradol) 15 mg IVPUSH Q6H PRN PRN Reason: Pain Last Admin: 07/25/17 04:54 Dose: 15 mg Magnesium Hydroxide (Milk Of Magnesia) 30 ml PO BID PRN PRN Reason: Constipation Morphine Sulfate (Morphine) 2 mg IVPUSH Q2H PRN PRN Reason: Breakthrough Pain Naloxone HCl (Narcan) 0.1 mg IVPUSH Q5M PRN PRN Reason: Oversedation Ondansetron HCl (Zofran) 4 mg IVPUSH Q6HR MANNY Last Admin: 07/25/17 06:14 Dose: Not Given Oxycodone/Acetaminophen (Percocet 325-5 Mg) 1 - 2 tab PO Q4H PRN PRN Reason: Pain Last Admin: 07/25/17 06:11 Dose: 2 tab Senna (Senna) 8.6 mg PO BID PRN PRN Reason: Constipation Discontinued Medications Albuterol (Proventil Neb Soln) 2.5 mg NEB ONETIME PRN PRN Reason: improve pulmonary toilet Bupivacaine HCl (Sensorcaine-Mpf 0.25%) Confirm Administered Dose 30 ml .ROUTE .STK-MED ONE Stop: 07/24/17 08:51 Last Admin: 07/24/17 11:25 Dose: 30 ml Cefazolin Sodium (Ancef) Confirm Administered Dose 2 gm .ROUTE .STK-MED ONE Stop: 07/24/17 08:05 Last Admin: 07/24/17 11:23 Dose: 2 gm Cefazolin Sodium (Ancef) Confirm Administered Dose 2 gm .ROUTE .STK-MED ONE Stop: 07/24/17 08:51 Morphine Sulfate 8 mg/Epinephrine HCl 0.3 mg/Cefuroxime Sodium 750 mg/Ketorolac Tromethamine 30 mg/Sodium Chloride 27.9 ml 0 mg .XX ONETIME ONE Stop: 07/24/17 06:51 Last Admin: 07/24/17 11:28 Dose: 788.3 mg Diphenhydramine HCl (Benadryl) 25 mg IVPUSH Q4H PRN PRN Reason: Nausea Diphenhydramine HCl (Benadryl) 25 mg IVPUSH Q6H PRN PRN Reason: pruritis Ephedrine Sulfate (Ephedrine Sulfate) 5 mg IVPUSH ASDIRECTED PRN PRN Reason: Hypotension Stop: 07/24/17 16:00 Ephedrine Sulfate (Ephedrine In Ns) Confirm Administered Dose 25 mg .ROUTE .STK- MED ONE Stop: 07/24/17 11:39 Fentanyl (Sublimaze) Confirm Administered Dose 100 mcg .ROUTE .STK-MED ONE Stop: 07/24/17 08:06 Fentanyl (Sublimaze) 50 mcg IVPUSH Q5M PRN PRN Reason: Pain Stop: 07/24/17 10:15 Hydromorphone HCl (Dilaudid) 0.5 mg IVPUSH Q15M PRN PRN Reason: severe pain Stop: 07/24/17 10:15 Lactated Ringer's (Ringers, Lactated) 1,000 mls @ 125 mls/hr IV ASDIRECTED COUNT INCLUDES THE [facility] Stop: 07/24/17 18:00 Last Admin: 07/24/17 08:55 Dose: 125 mls/hr Cefazolin Sodium/Dextrose 2 gm (/ Premix) 50 mls @ 100 mls/hr IV Q8H COUNT INCLUDES THE [facility] Stop: 07/25/17 09:29 Last Admin: 07/25/17 09:23 Dose: 100 mls/hr Lidocaine HCl (Xylocaine-Mpf 1%) Confirm Administered Dose 10 mls @ as directed .ROUTE .STK-MED ONE Stop: 07/24/17 08:05 Lactated Ringer's (Ringers, Lactated) Confirm Administered Dose 1,000 mls @ as directed .ROUTE .STK-MED ONE Stop: 07/24/17 08:05 Lactated Ringer's (Ringers, Lactated) Confirm Administered Dose 1,000 mls @ as directed .ROUTE .STK-MED ONE Stop: 07/24/17 10:19 Phenylephrine HCl 1 mg/ Sodium (Chloride) 10.1 mls @ 1 mls/sec IV TITRATE COUNT INCLUDES THE [facility] PRN Reason: Protocol Stop: 07/24/17 16:00 Iodine (Iodine 2% Mild Tincture) Confirm Administered Dose 30 ml .ROUTE .STK- MED ONE Stop: 07/24/17 08:51 Last Admin: 07/24/17 11:20 Dose: 18 ml Ketamine HCl (Ketalar) Confirm Administered Dose 500 mg .ROUTE .STK-MED ONE Stop: 07/24/17 08:08 Ketorolac Tromethamine (Toradol) Confirm Administered Dose 30 mg .ROUTE .STK- MED ONE Stop: 07/24/17 08:05 Lidocaine/Sodium Bicarbonate (Buffered Lidocaine 1% In Ns 8.4%) 0.25 ml IV ONETIME PRN PRN Reason: Prior to IV Start Stop: 07/24/17 18:00 Last Admin: 07/24/17 08:55 Dose: 0.25 ml Midazolam HCl (Versed 1 Mg/Ml) Confirm Administered Dose 2 mg .ROUTE .STK-MED ONE Stop: 07/24/17 08:06 Midazolam HCl (Versed 1 Mg/Ml) 2 mg IVPUSH ONETIME PRN PRN Reason: Sedation Stop: 07/24/17 18:00 Midazolam HCl (Versed 1 Mg/Ml) Confirm Administered Dose 2 mg .ROUTE .STK-MED ONE Stop: 07/24/17 11:51 Morphine Sulfate (Duramorph Pf) Confirm Administered Dose 1 mg .ROUTE .STK-MED ONE Stop: 07/24/17 07:52 Ondansetron HCl (Zofran) Confirm Administered Dose 4 mg .ROUTE .STK-MED ONE Stop: 07/24/17 08:05 Ondansetron HCl (Zofran) 4 mg IVPUSH ONETIME PRN PRN Reason: Nausea/Vomiting Stop: 07/24/17 16:00 Last Admin: 07/24/17 14:12 Dose: 4 mg Phenylephrine HCl (Phenylephrine In Ns 100 Mcg/Ml) Confirm Administered Dose 1 mg .ROUTE .STK-MED ONE Stop: 07/24/17 08:05 Propofol (Diprivan 20 Ml) Confirm Administered Dose 400 mg .ROUTE .STK-MED ONE Stop: 07/24/17 08:06 Propofol (Diprivan 20 Ml) Confirm Administered Dose 200 mg .ROUTE .STK-MED ONE Stop: 07/24/17 11:01 Ropivacaine (Naropin 0.5%) Confirm Administered Dose 30 ml .ROUTE .STK-MED ONE Stop: 07/24/17 12:30 Scopolamine (Scopolamine) 1 each TOP ONETIME ONE Stop: 07/24/17 15:52 Last Admin: 07/24/17 16:03 Dose: 1 each Sodium Chloride (Saline Flush) 10 ml FLUSH ASDIRECTED PRN PRN Reason: Keep Vein Open Stop: 07/24/17 18:00 Tranexamic Acid (Cyklokapron) Confirm Administered Dose 1,000 mg .ROUTE .STK- MED ONE Stop: 07/24/17 08:51 Last Admin: 07/24/17 11:35 Dose: 1,000 mg Vancomycin HCl (Vancomycin) Confirm Administered Dose 1 gm .ROUTE .STK-MED ONE Stop: 07/24/17 08:51 Last Admin: 07/24/17 11:30 Dose: 1 gm - Exam Quality Assessment: DVT Prophylaxis General: Alert, Oriented, Cooperative, No Acute Distress HEENT: Pupils Equal, EOMI, Mucous Membr. Moist/[place] Neck: Supple Lungs: Clear to Auscultation, Normal Respiratory Effort Cardiovascular: Regular Rate, Regular Rhythm GI/Abdominal Exam: Normal Bowel Sounds, Soft, Non-Tender (Male) Exam: Deferred Extremities: No Pedal Edema, Normal Capillary Refill, Other (teds, ice to lt knee, SCD's bilat in place) Peripheral Pulses: 2+: Dorsalis Pedis (L), Dorsalis Pedis (R) Neurological: No New Focal Deficit Psy/Mental Status: Alert, Normal Affect, Normal Mood Consult PN Assessment/Plan POD#: 1 Procedures: Procedures ASSAY OF PREALBUMIN (07/12/17) ASSAY OF SERUM ALBUMIN (07/12/17) COMPLETE CBC W/AUTO DIFF WBC (07/12/17) METABOLIC PANEL TOTAL CA (07/12/17) PROTHROMBIN TIME (07/12/17) ROUTINE VENIPUNCTURE (07/12/17) THROMBOPLASTIN TIME PARTIAL (07/12/17) X-RAY EXAM CHEST 2 VIEWS (07/20/17) (1) S/P total knee arthroplasty SNOMED Code(s): 2662168246622, 4574889054408 Code(s): Z96.659 - PRESENCE OF UNSPECIFIED ARTIFICIAL KNEE JOINT Priority: High Current Visit: Yes Qualifiers: Laterality: left Qualified Code(s): Z96.652 - Presence of left artificial knee joint (2) S/P hardware removal SNOMED Code(s): 491488317 Code(s): Z98.890 - OTHER SPECIFIED POSTPROCEDURAL STATES Priority: High Current Visit: Yes (3) Osteoarthritis SNOMED Code(s): 578761442 Code(s): M19.90 - UNSPECIFIED OSTEOARTHRITIS, UNSPECIFIED SITE Priority: High Current Visit: Yes Qualifiers: Osteoarthritis location: knee Osteoarthritis type: primary Laterality: bilateral Qualified Code(s): M17.0 - Bilateral primary osteoarthritis of knee (4) Asthma SNOMED Code(s): 357488148 Code(s): J45.909 - UNSPECIFIED ASTHMA, UNCOMPLICATED Priority: Low Current Visit: Yes Qualifiers: Asthma severity: unspecified severity Asthma persistence: unspecified Asthma complication type: unspecified Qualified Code(s): J45.909 - Unspecified asthma, uncomplicated Problem List Initiated/Reviewed/Updated: Yes Plan: I/P: Acute: S/P left total knee arthroplasty - post-operative day #1 -DVT prophylaxis and pain management per primary care team -PT/OT -IS/RT -Vital signs stable -Monitor labs -Pre-operative Hgb was 16.6-->12.2 -Pre-operative BUN 23, Creatinine 1.2, eGFR >60 Osteoarthritis of bilateral knees -Pain management per primary care team S/P left knee hardware removal - Prior ACL fixation Post-operative nausea and vomiting---resolved -Zofran as ordered -Scopolamine patch ordered Chronic: Asthma Plan: CM for discharge planning---OK for DC home today from hospitalist standpoint. GI prophylaxis Home medications as indicated Other orders as listed above Routine AM labs He is a full code. His PCP is Julian Gupta PA-C, here at [facility]
--- NOTE | 2017-07-26 09:23 | PCM.DCSUM1 ---
Discharge Summary - Hospital Course Brief History: Cheikh is a 47 yo male who underwent left TKA with Dr. Clemente on 07-24. The procedure was completed under spinal anesthesia. The pt tolerated the procedure well and was admitted to the Medical-Surgical Unit. Medical management was provided by the Hospitalist service. The pt's Hospital course was uneventful. The pt's Hgb on POD#1 was 12.7. On POD#1, 325mg ASA BID was initiated for VTE prophylaxis. SCDs and TEDs were also ordered. A Mepilex dressing was placed at the incision site at the time of surgery and remained clean and dry. The pt participated in P.T. and O.T. and progressed well. The pt was allowed to WBAT. On POD#1, the pt was deemed appropriate to discharge to home with his . - Discharge Data Discharge Date: 07/25/17 Discharge Disposition: Home, Self-Care 01 Condition: Good - Patient Summary/Data Consults: Consultations 07/24/17 06:50 OT Evaluation and Treatment [CONS] Routine PT Evaluation and Treatment [CONS] Routine 07/24/17 06:51 Consult to Physician [CONS] Routine - Patient Instructions Diet: Usual Diet as Tolerated Activity: Apply Ice, As Tolerated, Elevate Extremity, Full Weight Bearing Driving: Do Not Drive Showering/Bathing: May Shower Wound/Incision Care: Keep Operative Site/Wound Site Clean and Dry, Do NOT Change Dressing Notify Provider of: Fever, Increased Pain, Swelling and Redness, Drainage, Nausea and/or Vomiting Other/Special Instructions: Please get up and moving around every hour while awake. This helps to prevent blood clots. Please take 325mg aspirin twice daily - this also helps to prevent blood clots. The medication is being used for blood clot prevention and not for pain control, so please use the medication twice daily as directed. Please wear the EIRCKA hose during the day and you may remove them at night. Please schedule for P.T. Complete the P.T. exercises and stretches that were instructed in the Hospital. Please use the pain medication and muscle relaxant as needed. The medication may cause drowsiness and/or constipation. You could use a stool softener like docusate sodium or Colace 100mg twice daily and/or a laxative like Miralax daily for constipation. Contact your primary care provider for further instructions if you are constipated. Please schedule an appointment with your primary care provider for 'routine post-op care'. Use the incentive spirometer often. Please place ice to the knee often. Please elevate the limb to decrease swelling. Keep the Mepilex dressing in place until follow-up. Please call [phone] with questions or concerns. - Discharge Plan Prescriptions/Med Rec: Acetaminophen/oxyCODONE [Percocet 325-5 MG] 1 - 2 tab PO Q4H PRN #60 tablet PRN Reason: Pain Aspirin [Ecotrin] 325 mg PO BID #84 tab.ec Cyclobenzaprine [Flexeril] 10 mg PO TID PRN #40 tablet PRN Reason: Spasms Docusate Sodium [Colace] 100 mg PO BID #30 cap Famotidine [Pepcid] 20 mg PO Q12H #60 tablet Home Medications: Home Meds Acetaminophen [Tylenol Extra Strength] 1,000 mg PO ASDIRECTED PRN 07/21/17 [ History] Albuterol [IJD: Albuterol HFA] 1 puff INH ASDIRECTED PRN 07/21/17 [History] Cholecalciferol (Vitamin D3) [Vitamin D] 1 tab PO DAILY 07/21/17 [History] Acetaminophen/oxyCODONE [Percocet 325-5 MG] 1 - 2 tab PO Q4H PRN #60 tablet 04/03 [Rx] Aspirin [Ecotrin] 325 mg PO BID #84 tab.ec 07/25/17 [Rx] Cyclobenzaprine [Flexeril] 10 mg PO TID PRN #40 tablet 07/25/17 [Rx] Docusate Sodium [Colace] 100 mg PO BID #30 cap 07/25/17 [Rx] Famotidine [Pepcid] 20 mg PO Q12H #60 tablet 07/25/17 [Rx] Patient Handouts: Total Knee Replacement, Care After, Total Knee Replacement Referrals: Julian Gupta PA-C [Physician Regional Safety Manager] - Lorraine Perkins PA-C [Physician Regional Safety Manager] - (1. Follow-up with Lorraine Perkins PA-C on Tuesday, August 01, 2017 at 9:45am. 2. Follow-up with Lorraine Perkins PA-C on Tuesday, August 08, 2017 at 9:00am.) - Patient Data Vitals - Most Recent: Last Vital Signs Temp 98.3 F 07/25/17 10:00 Pulse 78 07/25/17 10:00 Resp 14 07/25/17 12:00 BP 115/72 07/25/17 10:00 Pulse Ox 95 07/25/17 12:00 Weight - Most Recent: 233 lb 11.04 oz Med Orders - Current: Current Medications Discontinued Medications Albuterol (Proventil Neb Soln) 2.5 mg NEB ONETIME PRN PRN Reason: improve pulmonary toilet Albuterol (Proventil Hfa) 0 gm INH ASDIRECTED PRN PRN Reason: Shortness of Breath Aspirin (Ecotrin) 325 mg PO BID [facility] Last Admin: 07/25/17 09:22 Dose: 325 mg Bisacodyl (Dulcolax) 5 mg PO DAILY PRN PRN Reason: Constipation Bupivacaine HCl (Sensorcaine-Mpf 0.25%) Confirm Administered Dose 30 ml .ROUTE .STK-MED ONE Stop: 07/24/17 08:51 Last Admin: 07/24/17 11:25 Dose: 30 ml Cefazolin Sodium (Ancef) Confirm Administered Dose 2 gm .ROUTE .STK-MED ONE Stop: 07/24/17 08:05 Last Admin: 07/24/17 11:23 Dose: 2 gm Cefazolin Sodium (Ancef) Confirm Administered Dose 2 gm .ROUTE .STK-MED ONE Stop: 07/24/17 08:51 Cholecalciferol (Vitamin D3) 5,000 units PO DAILY [facility] Last Admin: 07/25/17 09:23 Dose: 5,000 units Morphine Sulfate 8 mg/Epinephrine HCl 0.3 mg/Cefuroxime Sodium 750 mg/Ketorolac Tromethamine 30 mg/Sodium Chloride 27.9 ml 0 mg .XX ONETIME ONE Stop: 07/24/17 06:51 Last Admin: 07/24/17 11:28 Dose: 788.3 mg Cyclobenzaprine HCl (Flexeril) 10 mg PO TID PRN PRN Reason: Spasms Last Admin: 07/25/17 11:42 Dose: 10 mg Diphenhydramine HCl (Benadryl) 25 mg IVPUSH Q4H PRN PRN Reason: Nausea Diphenhydramine HCl (Benadryl) 25 mg IVPUSH Q6H PRN PRN Reason: pruritis Diphenhydramine HCl (Benadryl) 25 mg PO Q4H PRN PRN Reason: Itching Last Admin: 07/25/17 09:22 Dose: 25 mg Docusate Sodium (Colace) 100 mg PO BID [facility] Last Admin: 07/25/17 09:22 Dose: 100 mg Ephedrine Sulfate (Ephedrine Sulfate) 5 mg IVPUSH ASDIRECTED PRN PRN Reason: Hypotension Stop: 07/24/17 16:00 Ephedrine Sulfate (Ephedrine In Ns) Confirm Administered Dose 25 mg .ROUTE .STK- MED ONE Stop: 07/24/17 11:39 Famotidine (Pepcid) 20 mg PO Q12H [facility] Last Admin: 07/25/17 09:22 Dose: 20 mg Fentanyl (Sublimaze) Confirm Administered Dose 100 mcg .ROUTE .STK-MED ONE Stop: 07/24/17 08:06 Fentanyl (Sublimaze) 50 mcg IVPUSH Q5M PRN PRN Reason: Pain Stop: 07/24/17 10:15 Hydromorphone HCl (Dilaudid) 0.5 mg IVPUSH Q15M PRN PRN Reason: severe pain Stop: 07/24/17 10:15 Lactated Ringer's (Ringers, Lactated) 1,000 mls @ 125 mls/hr IV ASDIRECTED [facility] Stop: 07/24/17 18:00 Last Admin: 07/24/17 08:55 Dose: 125 mls/hr Cefazolin Sodium/Dextrose 2 gm (/ Premix) 50 mls @ 100 mls/hr IV Q8H [facility] Stop: 07/25/17 09:29 Last Admin: 07/25/17 09:23 Dose: 100 mls/hr Lidocaine HCl (Xylocaine-Mpf 1%) Confirm Administered Dose 10 mls @ as directed .ROUTE .STK-MED ONE Stop: 07/24/17 08:05 Lactated Ringer's (Ringers, Lactated) Confirm Administered Dose 1,000 mls @ as directed .ROUTE .STK-MED ONE Stop: 07/24/17 08:05 Lactated Ringer's (Ringers, Lactated) Confirm Administered Dose 1,000 mls @ as directed .ROUTE .STK-MED ONE Stop: 07/24/17 10:19 Phenylephrine HCl 1 mg/ Sodium (Chloride) 10.1 mls @ 1 mls/sec IV TITRATE MANNY PRN Reason: Protocol Stop: 07/24/17 16:00 Iodine (Iodine 2% Mild Tincture) Confirm Administered Dose 30 ml .ROUTE .STK- MED ONE Stop: 07/24/17 08:51 Last Admin: 07/24/17 11:20 Dose: 18 ml Ketamine HCl (Ketalar) Confirm Administered Dose 500 mg .ROUTE .STFineline-MED ONE Stop: 07/24/17 08:08 Ketorolac Tromethamine (Toradol) 15 mg IVPUSH Q6H PRN PRN Reason: Pain Last Admin: 07/25/17 04:54 Dose: 15 mg Ketorolac Tromethamine (Toradol) Confirm Administered Dose 30 mg .ROUTE .STK- MED ONE Stop: 07/24/17 08:05 Lidocaine/Sodium Bicarbonate (Buffered Lidocaine 1% In Ns 8.4%) 0.25 ml IV ONETIME PRN PRN Reason: Prior to IV Start Stop: 07/24/17 18:00 Last Admin: 07/24/17 08:55 Dose: 0.25 ml Magnesium Hydroxide (Milk Of Magnesia) 30 ml PO BID PRN PRN Reason: Constipation Midazolam HCl (Versed 1 Mg/Ml) Confirm Administered Dose 2 mg .ROUTE .STK-MED ONE Stop: 07/24/17 08:06 Midazolam HCl (Versed 1 Mg/Ml) 2 mg IVPUSH ONETIME PRN PRN Reason: Sedation Stop: 07/24/17 18:00 Midazolam HCl (Versed 1 Mg/Ml) Confirm Administered Dose 2 mg .ROUTE .STFineline-MED ONE Stop: 07/24/17 11:51 Morphine Sulfate (Morphine) 2 mg IVPUSH Q2H PRN PRN Reason: Breakthrough Pain Morphine Sulfate (Duramorph Pf) Confirm Administered Dose 1 mg .ROUTE .STK-MED ONE Stop: 07/24/17 07:52 Naloxone HCl (Narcan) 0.1 mg IVPUSH Q5M PRN PRN Reason: Oversedation Ondansetron HCl (Zofran) Confirm Administered Dose 4 mg .ROUTE .STK-MED ONE Stop: 07/24/17 08:05 Ondansetron HCl (Zofran) 4 mg IVPUSH ONETIME PRN PRN Reason: Nausea/Vomiting Stop: 07/24/17 16:00 Last Admin: 07/24/17 14:12 Dose: 4 mg Ondansetron HCl (Zofran) 4 mg IVPUSH Q6HR MANNY Last Admin: 07/25/17 06:14 Dose: Not Given Oxycodone/Acetaminophen (Percocet 325-5 Mg) 1 - 2 tab PO Q4H PRN PRN Reason: Pain Last Admin: 07/25/17 11:01 Dose: 2 tab Phenylephrine HCl (Phenylephrine In Ns 100 Mcg/Ml) Confirm Administered Dose 1 mg .ROUTE .STK-MED ONE Stop: 07/24/17 08:05 Propofol (Diprivan 20 Ml) Confirm Administered Dose 400 mg .ROUTE .STK-MED ONE Stop: 07/24/17 08:06 Propofol (Diprivan 20 Ml) Confirm Administered Dose 200 mg .ROUTE .STK-MED ONE Stop: 07/24/17 11:01 Ropivacaine (Naropin 0.5%) Confirm Administered Dose 30 ml .ROUTE .STK-MED ONE Stop: 07/24/17 12:30 Scopolamine (Scopolamine) 1 each TOP ONETIME ONE Stop: 07/24/17 15:52 Last Admin: 07/24/17 16:03 Dose: 1 each Senna (Senna) 8.6 mg PO BID PRN PRN Reason: Constipation Sodium Chloride (Saline Flush) 10 ml FLUSH ASDIRECTED PRN PRN Reason: Keep Vein Open Stop: 07/24/17 18:00 Tranexamic Acid (Cyklokapron) Confirm Administered Dose 1,000 mg .ROUTE .STK- MED ONE Stop: 07/24/17 08:51 Last Admin: 07/24/17 11:35 Dose: 1,000 mg Vancomycin HCl (Vancomycin) Confirm Administered Dose 1 gm .ROUTE .STK-MED ONE Stop: 07/24/17 08:51 Last Admin: 07/24/17 11:30 Dose: 1 gm *Q Meaningful Use (DIS) - VTE *Q VTE Criteria *Q: - Stroke *Q Stroke Criteria *Q: - AMI *Q AMI Criteria *Q:
--- NOTE | 2017-08-01 13:33 | PCM.OPNOTE ---
- General Post-Op/Procedure Note Date of Surgery/Procedure: 07/24/17 Operative Procedure(s): left total knee arthroplasty with deep hardware removal Pre Op Diagnosis: left knee osteoarthrosis with hardware Post-Op Diagnosis: Same Anesthesia Technique: Local, MAC, Spinal Primary Surgeon: Sunny Clemente Anesthesia Provider: Abimbola Bartlett Civil Engineering Professional: Lorraine Perkins Civil Engineering Professional: Kellee Hernandez EBMk in mLs: 5 Complications: None Condition: Good
--- NOTE | 2017-08-01 14:49 | OR ---
DATE OF OPERATION: 07/24/2017 SURGEON: Sunny Clemente MD OPERATION PERFORMED: Left total knee arthroplasty with deep hardware removal. PREOPERATIVE DIAGNOSIS: Left knee osteoarthrosis with retained hardware. POSTOPERATIVE DIAGNOSIS: Left knee osteoarthrosis with retained hardware. ANESTHESIA: Local MAC with spinal. ANESTHESIA PROVIDER: Abimbola Bartlett CRNA ASSISTANTS: Lorraine Perkins PA-C, and Kellee Hernandez LPN. ESTIMATED BLOOD LOSS: 5 mL. COMPLICATIONS: None. CONDITION: Stable. DESCRIPTION OF PROCEDURE: The patient was identified in the preoperative holding area. Proper site was marked and identified by the surgeon. The patient was taken back to the operating theater, where after adequate anesthesia, the patient's left lower extremity had a nonsterile tourniquet applied and was then sterilely prepped and draped in the usual sterile fashion. OR time-out was performed. The patient received 2 g IV Ancef. At this time, the left lower extremity was exsanguinated. Tourniquet was insufflated to 300 mmHg. Standard anterior medial parapatellar incision was made and medial parapatellar arthrotomy was created. Deep fibers of the MCL were raised and the anterior fat pad was resected. Attention was turned to the patella. Patella measured a 27, was resected to a 17 for 35 x 10 mm patella. Drill holes were then drilled. Drill hole was then placed in the distal femur into the intramedullary canal. Distal femoral cutting guide was then placed in the intramedullary canal and 8 mm was resected off the distal femur. At this time, sizing guide was placed. It was found to be a size 7 and the epicondylar access holes were then drilled using [place] line and epicondyles as reference. A 4 in 1 cutting block for size 7 was then placed and anterior and posterior chamfer cuts were then completed found to be adequate. Box cut was then completed and found to be adequate at this time. While making the box cut, we did encounter the interference screw in the femur. We were able to just with a small osteotome remove the screw at this time. Attention was then turned to the tibia. Posterior medial and lateral retractors were placed. Extramedullary tibial cutting guide was placed in the old footprint of the ACL. 9 mm was resected off the less affected side and it was aligned with the center of the ankle slope itself for roughly 0-3 degrees. At this time, resection was carried out and it was found to be adequate resection. The medial and lateral meniscus were removed along with any posterior osteophytes. The tibial base plate was then placed in proper rotation along with trial implants. The patient had full flexion and extension and was stable to varus and valgus stress with a 9 mm trial spacer. At this time, the trial spacer was removed and the tibia was stamped and drilled in the proper rotation. While we were doing this, we did encounter the interference screw of the tibia and this were removed using an osteotome as well and then we stamped and drilled the tibia again in the proper rotation. All cut surfaces were irrigated with pulse lavage, irrigation with Ancef and then were completely dried. Cement was mixed on the back table. At this time, size 7 [place] tibial base plate was cemented into place, size 7 PS femur cemented in place, 9 mm PS X3 polyethylene was implanted, and the patient's knee was brought to full extension. Excess cement was removed. A 35 x 10 mm patella was then cemented into place. At this time, the tourniquet remained up. Periarticular injection was then completed at this time. 1 L dilute Betadine solution was irrigated through the knee along with 3 L pulse lavage irrigation with Ancef. Topical vancomycin powder as well as tranexamic acid was then placed, and #2 barbed suture was used for closure the medial parapatellar arthrotomy, 2-0 Vicryl was used subcutaneously and a running 3-0 Monocryl along with Prineo was used for the skin. The patient tolerated the procedure well and sent to PACU in stable condition. SCOTT /[id number]
== END 2017-07-25 12:05 | disposition home or self-care (01) ==
LOC: JD.SDS 08:30 → EDSTATUS 13:30 → JD.SDS 07-25 12:05
PROVIDERS: ATTEND Orthopaedic Surgery
DX: Z47.2 Encounter for removal of internal fixation device (principal); M17.12 Unilateral primary osteoarthritis, left knee; J45.990 Exercise induced bronchospasm; J30.2 Other seasonal allergic rhinitis; Z79.899 Other long term (current) drug therapy
CPT/HCPCS: 20680; 27447; 36415; 64450; 73560; 80053; 85027; 87641; 94762; 97110; 97116; 97161; 97165; 97530; 97535; A9270; C1713; C1776; J0171; J0690; J0697; J1885; J2250; J2270; J2274; J2405; J2795; J3010; J3370; J7050; J7120; 01402; 64447; J2704